=== PATIENT | male | born 1960 | race Hispanic/Latino ===

== ENCOUNTER → 2020-08-15 15:00 | Outpatient (CLI) | payer OTHER, SELFPAY ==
[2020-08-15] MEDS: COVID-19 VACC, Ad26(JANSSEN)/PF 0.5 ML IM (15:08)
== END ==
PROVIDERS: Visit Provider Internal Medicine
DX: Z23 Encounter for immunization (principal)
CPT/HCPCS: 0031A; 91303

== ENCOUNTER → 2021-08-04 13:32 | Outpatient (CLI) | payer OTHER, SELFPAY ==
--- NOTE | 2021-08-04 | DI.ECHO.S_ITS ---
[facility] +---------+ : : [address] : : : : [id number] : : : : Phone: [phone]---------+ Echocardiogram Report + + :Name: PALMER URIBE Study Date: 08/04/2021 Height: 69 in : :[facility] ReadingLocation: Weight: 163 lb : : Gender: Male BSA: 1.9 m2 : :: 1960 Age: 60 yrs BP: 138/86 mmHg: :Reason For Study: CHEST PAIN : :Ordering Physician: ADE ANN Performed By: Lexii Crawford : :Referring: ADE ANN : + + Interpretation Summary 1) Normal left ventricular thickness and size with mildly reduced systolic function (EF about 45%). 2) Normal right ventricular size and function. 3) No significant valvular abnormalities. 4) The aortic root is mildly dilated at 4.0cm. 5) Hypertension present during the study (BP 138/86mm Hg). 6) No prior Echo available for comparison. Procedure: A two-dimensional transthoracic echocardiogram with color flow and Doppler was performed. The study quality was technically adequate. There is no prior echocardiogram noted for this patient. The patient was in sinus bradycardia with heart rates between 48-56 bpm during the exam. Left Ventricle: The left ventricle is normal in size and wall thickness. Left ventricular ejection fraction is estimated to be 45 +/- 5%. There is mild global hypokinesis of the left ventricle. Right Ventricle: The right ventricle is normal in size and function. Atria: The left atrial size is normal. Right atrial size is normal. There is no Doppler evidence for an interatrial shunt. Mitral Valve: The mitral valve is normal in structure and function. There is trace mitral regurgitation. Aortic Valve: The aortic valve is grossly normal. The aortic valve opens well. There is no aortic valve stenosis. No aortic regurgitation is present. Tricuspid Valve: The tricuspid valve is normal in structure and function. There is mild tricuspid regurgitation. The right ventricular systolic pressure is estimated to be at least 24 mmHg based on an estimated right atrial pressure of 3 mm Hg. Pulmonic Valve: The pulmonic valve is not well visualized. There is no pulmonic valvular regurgitation. Great Vessels: The aortic root is mildly dilated. The ascending aorta could not be visualized. The IVC is of normal diameter and collapses greater than 50% with a sniff. This suggests a low right atrial pressure of 3 mm Hg. Pericardium/ Pleura There is no pericardial effusion. There is no pleural effusion. MMode/2D Measurements & Calculations LVIDd: 4.6 cm LVOT diam: 2.4 cm LVIDs: 3.6 cm Ao root diam: 4.0 cm FS: 21.4 % Ao Arch Diam (Prox Trans): 2.4 cm IVSd: 0.73 cm LVPWd: 0.83 cm LV lyles. diameter/BSA (cm/m^2): 2.4 LV sys. diameter/BSA (cm/m^2): 1.9 LA A2 area: 19.2 cm2 RA long axis: 4.1 cm LA A4 area: 14.1 cm2 RA area: 13.0 cm2 LA length (vol): 4.2 cm RA vol: 34.7 ml LA vol: 55.0 ml RA : 18.3 ml/m2 LA vol index: 29.1 ml/m2 IVC diam: 1.4 cm RVD1 (basal): 3.1 cm TAPSE: 1.6 cm Doppler Measurements & Calculations Ao V2 max: 109.5 cm/sec LVOT Max Dion: 95.0 cm/sec Ao V2 mean: 76.6 cm/sec LV V1 max P.6 mmHg Ao max P.8 mmHg LV V1 VTI: 18.7 cm Ao mean P.6 mmHg BARBARA(I,D): 3.6 cm2 Ao V2 VTI: 23.0 cm BARBARA(V,D): 3.9 cm2 sev ratio: 0.81 BARBARA indexed to BSA (cm^2/m^2): 1.9 MV E max dion: 66.7 cm/sec TR max dion: 230.3 cm/sec MV A max dion: 70.5 cm/sec TR max P.2 mmHg MV E/A: 0.95 PA pr(Accel): 20.8 mmHg Med Peak E' Dion: 7.0 cm/sec E/E' med: 9.5 Lat Peak E' Dion: 12.7 cm/sec E/E' lat: 5.3 E/e' average: 7.4 MV dec time: 0.28 sec SV(LVOT): 83.9 ml Reading Physician:04:57 PM
--- NOTE | 2021-08-04 16:14 | PM.TREADMILL ---
Cardiac Stress Test Report Referral & Results Date Patient Seen: 08/04/21 Time Patient Seen: 16:14 Requesting provider: Leeanna Ann Indication: chest pain Rest ECG: Sinus bradycardia Procedure Note: Standard Antonio protocol, 9:59 mins; 12.8 MEts Good exercise capacity, KELTON -13% Normal hemodynamic response to exercise No chest pain or anginal symptoms No significant ST changes with peak exercise Rare PVC Impression: Normal exercise stress test Please note: Actual ECG tracings can be found in the PACS system.
--- NOTE | 2021-08-04 20:04 | DI.NM.S_ITS ---
DATE OF SERVICE: 08/04/2021 PROCEDURE PERFORMED: Exercise treadmill stress test without imaging. ORDERING PROVIDER: Dr. Norberto Ann. INDICATIONS: The patient is a 60-year-old diabetic male with atypical chest discomfort and possible ectopic atrial rhythm following a COVID infection. FINDINGS: 1. The patient was able to exercise for 9 minutes, 59 seconds on a standard Antonio protocol suggesting good exercise capacity with an KELTON of -13%, achieving 12.8 METs. 2. He had a normal heart rate and blood pressure response to exercise, achieving a maximum heart rate of 145 BPM (90% of his predicted maximum). 3. He had no chest discomfort or other anginal symptoms. 4. His resting ECG shows a probable sinus rhythm versus an ectopic atrial rhythm but normal ST segments. With exercise, the P-wave axis appears to be more normal and there are no significant ST-segment shifts. He had no arrhythmias except for rare isolated PVCs in early recovery. IMPRESSION: 1. Normal exercise treadmill study for ischemia. 2. Good exercise capacity without angina and only rare isolated PACs in recovery. An ectopic atrial rhythm may be present at rest, competing with a sinus rhythm. Gus Quinn - JUAN C/jose j/miguel ángel doc#: [id number]/job#: [id number] dd: 08/04/2021 16:39:00 dt: 08/04/2021 19:41:00 DICTATING /COPIES TO: Christofer Rogers MD; Leeanna Ann MD COPIES MNE: MATHEUS;
== END ==
PROVIDERS: Referring Provider Internal Medicine Cardiovascular Disease; Visit Provider Internal Medicine Cardiovascular Disease
DX: I07.1 Rheumatic tricuspid insufficiency (principal); R07.89 Other chest pain; U09.9 Post COVID-19 condition, unspecified; I77.810 Thoracic aortic ectasia; E11.9 Type 2 diabetes mellitus without complications
CPT/HCPCS: 93017; 93306